=== PATIENT | female | born 1985 | race Caucasian/White ===

== ENCOUNTER 2023-10-17 10:11 | Inpatient (IN) ==
[2023-10-17] MEDS ORDERED: Lactated Ringers 1000 ml BAG 1,000 ML IV ONE (11:03)
[2023-10-17] MEDS ORDERED: Promethazine INJ(RESTRICTED) 25 MG/ML 1 ml VIAL IV PRN (11:03)
[2023-10-17] MEDS ORDERED: Buffered Lidocaine 1% SYRIN 1 ml INTRADERM ONE (11:03)
[2023-10-17] MEDS ORDERED: Lidocaine 1% VIAL 10 MG/ML 30 ML VIAL INJ PRN (11:03)
[2023-10-17] MEDS ORDERED: miSOPROStol 100 mcg TAB PO ONE ×2 (11:11→15:11)
[2023-10-17] MEDS ORDERED: Lactated Ringers 1000 ml BAG 1,000 ML IV SCH (12:00)
[2023-10-17 14:55] LABS: ABS Lymphocytes 1.3 10^3/uL (1.0-4.8); ABS Monocytes 0.5 10^3/uL (0.0-0.9); ABS Neutrophils 8.5 10^3/uL (1.5-7.6); Eosinophil % 0.4 %; Hematocrit 37.7 % (35-45); Hemoglobin 13.3 g/dL (11.5-14.3); Lymphocyte % 12.4 %; Mean Corpuscular Hemoglobin 34.2 pg (27-33); Mean Corpuscular Hgb Conc 35.3 g/dL (31-36); Mean Corpuscular Volume 96.7 fL (80-97); Mean Platelet Volume 10.1 fL (7.5-11.2); Platelet Count 170 10^3/uL (150-450); White Blood Count 10.4 10^3/uL (3.8-11.8)
[2023-10-17 15:20] LABS: Urine Benzodiazepine Screen None Detected (None Detect); Urine Cannabinoids Screen None Detected (None Detect); Urine Opiates Screen None Detected (None Detect)
[2023-10-17] MEDS ORDERED: Penicillin G Potassium IV 5,000,000 UNITS in NS 0.9% 100 ml BAG 100 ML IVPB ONE (19:53)
[2023-10-17] MEDS ORDERED: Dinoprostone 10 MG VAG.SUPP VAGINAL ONE (20:04)
[2023-10-18] MEDS ORDERED: Oxytocin in LR 20,000 MILLI.UNIT/1,000 ML BAG IV SCH ×2 (13:00→20:30)
[2023-10-18] MEDS ORDERED: OBEPIDURAL (200 ML) 200 ML EPIDURAL ONE (16:12)
[2023-10-18] MEDS ORDERED: Lidocaine 1.5% EPI 1:200,000 30 ML SDV ONE (16:12)
[2023-10-18] MEDS ORDERED: Sodium Citrate/Citric Acid LIQ 15 ML UDC PO PRN (17:33)
[2023-10-18] MEDS ORDERED: Lactated Ringers 1000 ml BAG 1,000 ML IV ONE (17:33)
[2023-10-18] MEDS ORDERED: Phenylephrine 40 mcg/mL 10mL (400mcg) SYRINGE IV PUSH PRN ×2 (17:33)
[2023-10-18] MEDS ORDERED: Lactated Ringers 1000 ml BAG 1,000 ML IV SCH (18:00)
[2023-10-18] MEDS ORDERED: OBEPIDURAL (200 ML) 200 ML EPIDURAL SCH (18:00)
[2023-10-18 19:07] LABS: Urine Appearance Cloudy; Urine Bilirubin Negative (Negative); Urine Blood 2+ (Negative); Urine Color Yellow; Urine Glucose Negative (Negative); Urine Ketones 1+ (Negative); Urine Nitrite Negative (Negative); Urine Protein 1+(30 mg/dL) (Negative); Urine Specific Gravity 1.029 (1.002-1.030); Urine Urobilinogen Negative (Negative)
[2023-10-18 19:15] LABS: Urine Bacteria Absent (Absent); Urine Red Blood Cell 3+(>10/hpf) (Absent); Urine Squamous Epithelial Cell Present (Absent); Urine White Blood Cell Trace(0-5/hpf) (Absent)
[2023-10-18] MEDS ORDERED: Penicillin G Potassium IV 3,000,000 UNITS in NS 0.9% 100 ml BAG 100 ML IVPB SCH (20:00)
[2023-10-18] MEDS ORDERED: Glycerin ADULT 2.4 gm SUPP PR PRN (20:29)
[2023-10-18] MEDS ORDERED: Dibucaine 1% OINT 28.35 GM TUBE PR PRN (20:29)
[2023-10-18] MEDS ORDERED: Witch Hazel PAD JAR TOPICAL PRN (20:29)
[2023-10-19 08:05] LABS: ABS Basophils 0.1 10^3/uL (0.0-0.1); ABS Eosinophils 0.1 10^3/uL (0.0-0.5); ABS Lymphocytes 1.4 10^3/uL (1.0-4.8); ABS Neutrophils 12.4 10^3/uL (1.5-7.6); Eosinophil % 0.4 %; Hemoglobin 12.3 g/dL (11.5-14.3); Lymphocyte % 9.1 %; Mean Corpuscular Hemoglobin 33.5 pg (27-33); Mean Corpuscular Hgb Conc 34.3 g/dL (31-36); Mean Corpuscular Volume 97.7 fL (80-97); Platelet Count 142 10^3/uL (150-450); Red Blood Count 3.68 10^6/uL (3.63-4.92); Red Cell Distribution Width 13.9 % (12-17); White Blood Count 14.8 10^3/uL (3.8-11.8)
[2023-10-20 07:47] VITALS: BP 126/89
== END 2023-10-20 16:33 | disposition home or self-care (01) | DRG 807 ==
LOC: MCHOBOUT 10:11 → MCHOB 10:43
PROVIDERS: ADMIT Advanced Practice Midwife; ATTEND Advanced Practice Midwife